=== PATIENT | male | born 1945 | race Caucasian/White ===

== ENCOUNTER 2017-07-23 13:20 | Emergency (ER) | payer MEDICARE, MEDICAID ==
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
--- NOTE | 2017-07-23 14:37 | CT ---
Head CT Technique: Multiple axial sections through the brain were obtained. Intravenous contrast was not utilized. Comparison: Prior MRI brain of 05/29/15 is available. Findings: Ventricles along the basal cisterns and sulci over convexities are mildly prominent. Diminished density is noted within the periventricular and subcortical white matter which is compatible with small vessel ischemic demyelination change. Several old lacunar infarcts are noted within the basal ganglia. No other abnormal parenchymal densities are seen. No evidence of intracranial hemorrhage. No midline shift or mass effect is appreciated. Atherosclerotic calcification is noted within the carotid siphon. Mild soft tissue swelling is seen within the frontal scalp on the left side. Visualized sinuses are clear of acute disease. No acute calvarial abnormality is seen. Impression: 1. Mild scalp soft tissue swelling. 2. Senescent change as noted above. 3. No acute intracranial abnormality is identified on noncontrast head CT exam. Diagnostic code #2
--- NOTE | 2017-07-23 14:40 | CT ---
CT cervical spine Technique: Multiple axial sections through the cervical spine were obtained. Study obtained from above C1 inferiorly to the bottom of T4. Reconstructed sagittal and coronal images were reviewed. Findings: Thoracic kyphoscoliosis is seen. Compression deformities are seen within T2, T3 and lesser T4. These compression deformities are most likely old. Vertebral bodies within the cervical spine are maintained. Moderate to severe disc space narrowing is noted at C5-6. Anterior osteophytes are noted at C5-6. Mild scattered degenerative apophyseal change is seen throughout the cervical spine. Degenerative change is noted between the dens and anterior arch of C1. No fracture is appreciated. No abnormal subluxation is seen. Moderate right-sided neural foraminal stenosis noted at C3-4. Osteopenia is seen. Impression: 1. Osteopenia. 2. Degenerative change as noted above. Kyphoscoliosis is present. 3. Nothing acute is appreciated. Diagnostic code #2
[2017-07-23] MEDS ORDERED: Lidocaine 1% 20 ML MDV INJECT ONE (15:36)
[2017-07-23] MEDS ORDERED: Lidocaine 1% 10 ML MDV ONE (15:46)
[2017-07-23 17:57] VITALS: BP 105/61
--- NOTE | 2017-07-25 09:15 | CR ---
Chest: Portable view of the chest was obtained. Comparison: No prior chest x-ray. Heart size at the upper limits of normal. Tortuous thoracic aorta is seen. Lungs are clear. Bony structure show scoliosis with the spine and osteopenia. Surgical clips are noted from prior cholecystectomy. Impression: 1. Incidental findings. Nothing acute is appreciated on portable chest x-ray. Diagnostic code #2
--- NOTE | 2017-07-25 09:15 | CR ---
Left hand: Four views of the left hand were obtained. Comparison: No previous study. Fracture is identified within the distal ulnar shaft which is mildly comminuted and mildly displaced. Degenerative change is noted off the distal navicular bone and at the CMC joint of the thumb and scattered within the DIP and PIP joints. Soft tissue swelling is noted. Bony structures are osteopenic. Impression: 1. Comminuted and mildly displaced fracture within the distal ulnar shaft. 2. Osteopenia and degenerative change. Diagnostic code #3
== END 2017-07-23 17:02 | disposition home or self-care (01) ==
LOC: JD.ED 13:20
DX: S52.602A Unspecified fracture of lower end of left ulna, initial encounter for closed fracture (principal); S61.412A Laceration without foreign body of left hand, initial encounter; S01.81XA Laceration without foreign body of other part of head, initial encounter; S60.511A Abrasion of right hand, initial encounter; E05.90 Thyrotoxicosis, unspecified without thyrotoxic crisis or storm; F32.9 Major depressive disorder, single episode, unspecified; Z88.2 Allergy status to sulfonamides; M19.90 Unspecified osteoarthritis, unspecified site; Z79.899 Other long term (current) drug therapy; V89.2XXA Person injured in unspecified motor-vehicle accident, traffic, initial encounter
CPT/HCPCS: 12004; 29125; 36415; 70450; 70450-26; 71045; 71045-26; 72125; 72125-26; 73130-26-LT; 73130-LT; 80053; 85025; 99284-25; 99285-25

== ENCOUNTER 2017-12-07 08:55 | Emergency (ER) | payer MEDICARE, MEDICAID ==
[2017-12-07 09:07] VITALS: BP 110/72
--- NOTE | 2017-12-07 09:10 | EDM.PDOC ---
ED HPI GENERAL MEDICAL PROBLEM - General Chief Complaint: Syncope Stated Complaint: [facility] Time Seen by Provider: 12/07/17 09:09 Source of Information: Reports: Patient History Limitations: Reports: No Limitations - History of Present Illness INITIAL COMMENTS - FREE TEXT/NARRATIVE: Mr. Vega apparently was found lying on the floor this morning by his primary caregiver. His caregiver checks on him every morning at 8:00. Sylvain was on the floor face first. He can answer questions but his left eye. Closed having difficulty opening it. He couldn't verbalize normally. He could not answer all questions normally. He was noted to have wet his closer lost control of his bladder. Some suggestion that the care provider identified that he had had diarrhea extensively throughout the apartment last night as well. Therefore there is an obvious change in his behavior. Sylvain has no recollection of how he ended up on the floor. He did have a bloody nose which he cleaned up. He denies any bone pain this ribs shoulders elbows or hips knees or back. He states he only hit his head. He is alert and oriented and acting normal as far as I can ascertain particularly since I have seen him before. There does have a seizure disorder but apparently no one appreciated him being post ictal although when I spoke to the caregiver it sounds like that was postictal and likely in his seizure within the hour of being found. Sylvain is mentally challenged. He also is certainly suffer from impaired short-term memory and signs and symptoms of dementia. He is not sure how he ended up on the floor. The paramedics were summoned to his home and helped him up from the floor. They did not identify any injuries either. Onset: Today Onset Date: 12/07/17 Onset Time: 07:00 Duration: Hour(s): Location: Reports: Face (Seems to have injured his nose and has some dried blood on his mid upper lip.) Quality: Reports: Ache Severity: Moderate Improves with: Reports: None Worsens with: Reports: None Context: Reports: Other (Unsure how he got down to the floor. Suspect trip and fall. Blood pressure is on the low side at 72. He may have expressed a syncopal episode. He states he has not yet had any breakfast. He is not known to be diabetic.). Denies: Activity, Exercise, Lifting, Sick Contact, Trauma Associated Symptoms: Reports: Headaches. Denies: No Other Symptoms, Confusion, Chest Pain, Cough, cough w sputum, Diaphoresis, Fever/Chills, Loss of Appetite, Malaise, Nausea/Vomiting, Rash, Seizure (He states he had a headache but it's better now), Shortness of Breath, Syncope, Weakness Treatments SCRIPT WORKER: Reports: Other (see below) (None.) - Related Data Allergies Allergy/AdvReac Type Severity Reaction Status Date / Time Sulfa (Sulfonamide Allergy Hives Verified 12/07/17 09:01 Antibiotics) Home Meds: Home Meds Donepezil HCl [Aricept] 10 mg PO BEDTIME 10/10/15 [History] Loratadine [Claritin] 10 mg PO DAILY 10/10/15 [History] Non-Formulary Medication [NF Drug] 2 mg BID 10/10/15 [History] Tamsulosin HCl [Flomax] 0.4 mg PO DAILY 10/10/15 [History] Triamcinolone Acetonide [Nasacort AQ [place]] 2 spr MAITE DAILY 10/10/15 [History] Vitamin E Mixed [Vitamin E] 400 unit PO DAILY 10/10/15 [History] carBAMazepine [Carbamazepine ER] 400 mg PO BID 10/13/15 [History] Docusate Sodium [Colace] 100 mg PO BID PRN #60 cap 10/22/15 [Rx] Sucralfate [Carafate] 1 gm PO QIDACANDBED #120 cup 10/22/15 [Rx] Ascorbic Acid/Ascorbate Sodium [Vitamin C 500 mg Wafer] 500 mg PO BID 12/07/17 [ History] Ferrous Sulfate 325 mg PO BIDMEALS 12/07/17 [History] Potassium Chloride 20 meq PO DAILY 12/07/17 [History] Sertraline [Zoloft] 50 mg PO DAILY 12/07/17 [History] carBAMazepine [TEGretol ER] 200 mg PO DAILY #30 tab.er 12/07/17 [Rx] traZODone HCl [Trazodone HCl] 75 mg PO QPM 12/07/17 [History] Past Medical History Cardiovascular History: Reports: Hypertension Respiratory History: Reports: Other (See Below) Other Respiratory History: URI Gastrointestinal History: Reports: Other (See Below) Other Gastrointestinal History: ULCERS Genitourinary History: Reports: BPH, Pyelonephritis, Other (See Below) Other Genitourinary History: kidney stones Musculoskeletal History: Reports: Back Pain, Chronic, Osteoarthritis, Other ( See Below) Other Musculoskeletal History: scoliosis Psychiatric History: Reports: Depression, Learning Disability, Other (See Below) Other Psychiatric History: psychotic disorder Endocrine/Metabolic History: Reports: Hyperthyroidism - Infectious Disease History Infectious Disease History: Reports: Chicken Pox - Past Surgical History Musculoskeletal Surgical History: Reports: Hip Replacement Social & Family History - Family History Family Medical History: Noncontributory - Caffeine Use Caffeine Use: Reports: Tea - Living Situation & Occupation Living situation: Reports: Single Occupation: Disabled ED ROS GENERAL - Review of Systems Review Of Systems: See Below Constitutional: Reports: Malaise, Weakness, Fatigue, Other. Denies: Fever, Chills, Weight Loss HEENT: Reports: Other (Carlson of had a bloody nose.). Denies: Glasses (He states he's hungry at this time.), Hearing Loss, Nosebleed, Sinus Problem, Throat Pain, Throat Swelling Respiratory: Reports: No Symptoms Cardiovascular: Reports: No Symptoms Endocrine: Reports: No Symptoms GI/Abdominal: Reports: Diarrhea : Reports: Other (Identified to lost control of his bladder when found on the floor suggesting seizure occurrence.) Musculoskeletal: Reports: No Symptoms Skin: Reports: No Symptoms Neurological: Reports: Headache, Seizure. Denies: Numbness, Paresthesia, Pre- Existing Deficit (Strongly suspect seizure occurrence this morning.), Syncope ( Mild headache but he states it's getting better), Tingling, Tremors, Trouble Speaking, Difficulty Walking, Weakness Psychiatric: Reports: Confusion (Intermittent problems with confusion with impaired short-term memory. Development) Hematologic/Lymphatic: Reports: No Symptoms ( sinus symptoms of dementia) Immunologic: Reports: No Symptoms - Physical Exam Exam: See Below Exam Limited By: No Limitations General Appearance: Alert, WD/WN, No Apparent Distress, Other (To me he appeared to be his normal self.) Eye Exam: Bilateral Eye: Normal Inspection, PERRL Ears: Normal TMs Nose: Other (He has had some bleeding from his left naris. There is dried blood on his upper lip.) Throat/Mouth: Normal Inspection, Normal Oropharynx. No: Normal Teeth Head Exam: Atraumatic, Normocephalic, Other (No overt signs of head trauma with no palpable scalp hematomas or lacerations or contusions.) Neck: Limited Range of Motion, Other (He has limited range of motion normally. But he had full) Respiratory/Chest: No Respiratory Distress ( painless range of motion in the ED. ), Decreased Breath Sounds. No: Respiratory Distress, Rales, Rhonchi ( Decreased breath sounds to both posterior lung cortes appreciated on exam.), Wheezing Cardiovascular: Normal Peripheral Pulses, Regular Rate, Rhythm, No Edema, No Gallop, No Murmur GI/Abdominal: Normal Bowel Sounds, Soft, Non-Tender, No Organomegaly Neuro Exam (Abbreviated): Alert, Oriented, CN II-XII Intact, Normal Cognition, No Motor/Sensory Deficits. No: Normal Gait (Done.) DTR: 0: Achilles (R), Achilles (L), 1+: Bicep (R), Bicep (L), Patella (R), Patella (L) Back Exam: Decreased Range of Motion, Other (Has severe kyphosis of his thoracic spine.). No: Full Range of Motion, CVA Tenderness (L), CVA Tenderness (R) Extremities: Normal Inspection, Normal Range of Motion, Non-Tender, No Pedal Edema Psychiatric: Normal Affect, Normal Mood Skin Exam: Warm, Dry, Intact, Normal Color, No Rash Course - Vital Signs Last Recorded V/S: Last Vital Signs Temp 36.8 C 12/07/17 09:01 Pulse 93 12/07/17 09:01 Resp 13 12/07/17 09:01 BP 110/72 12/07/17 09:01 Pulse Ox 13 L 12/07/17 09:01 - Orders/Labs/Meds Orders: Active Orders 24 hr Category Date Time Status CARBAMAZEPINE,TEGRETOL [CHEM] Stat Lab 12/07/17 10:15 Ordered LACTIC ACID [CHEM] Stat Lab 12/07/17 09:33 Received PRO B-TYPE NATRIUR PEPT,BNPPRO [CHEM] Stat Lab 12/07/17 09:05 Received TSH [CHEM] Stat Lab 12/07/17 09:05 Received Dextrose 5%-0.9% NaCl [Dextrose 5%-Normal Saline] 1,000 Med 12/07/17 09:15 Active ml IV ASDIRECTED Medication Orders Dextrose/Sodium Chloride (Dextrose 5%-Normal Saline) 1,000 mls @ 500 mls/hr IV ASDIRECTED GEE Last Admin: 12/07/17 09:40 Dose: 500 mls/hr Labs: Laboratory Tests 12/07/17 12/07/17 Range/Units 09:05 09:05 WBC 20.90 H (4.23-9.07) K/mm3 RBC 4.50 L (4.63-6.08) M/mm3 Hgb 13.5 L (13.7-17.5) gm/L Hct 40.8 (40.1-51.0) % MCV 90.7 (79.0-92.2) fl MCH 30.0 (25.7-32.2) pg MCHC 33.1 (32.2-35.5) g/dl RDW Std Deviation 48.1 H (35.1-43.9) fL Plt Count 325 (163-337) K/mm3 MPV 9.4 (9.4-12.3) fl Neutrophils % (Manual) 69 H (40-60) % Band Neutrophils % 2 (0-10) % Lymphocytes % (Manual) 21 (20-40) % Atypical Lymphs % 0 % Monocytes % (Manual) 8 (2-10) % Eosinophils % (Manual) 0 L (0.8-7.0) % Basophils % (Manual) 0 L (0.2-1.2) Differential Comment See note Toxic Granulation 1+ slight Platelet Estimate Adequate RBC Morph Comment Normal Sodium 143 (136-145) mEq/L Potassium 3.2 L (3.5-5.1) mEq/L Chloride 107 (98-107) mEq/L Carbon Dioxide 24 (21-32) mEq/L Anion Gap 15.2 H (5-15) BUN 20 H (7-18) mg/dL Creatinine 1.5 H (0.7-1.3) mg/dL Est Cr Clr Drug Dosing 36.73 mL/min Estimated GFR (MDRD) 46 (>60) mL/min BUN/Creatinine Ratio 13.3 L (14-18) Glucose 122 H (83-115) mg/dL Calcium 8.8 (8.5-10.1) mg/dL Magnesium 2.0 (1.8-2.4) mg/dl Total Bilirubin 0.4 (0.2-1.0) mg/dL AST 113 H (15-37) U/L ALT 30 (16-63) U/L Alkaline Phosphatase 108 (46-116) U/L Creatine Kinase 4564 H (39-308) U/L Troponin I < 0.017 (0.00-0.056) ng/mL Total Protein 7.3 (6.4-8.2) g/dl Albumin 3.1 L (3.4-5.0) g/dl Globulin 4.2 gm/dL Albumin/Globulin Ratio 0.7 L (1-2) Meds: Medications Generic Name Dose Route Start Last Admin Trade Name Freq PRN Reason Stop Dose Admin Dextrose/Sodium Chloride 1,000 mls @ 500 mls/hr 12/07/17 09:15 12/07/17 09:40 Dextrose 5%-Normal Saline IV 500 mls/hr ASDIRECTED GEE Administration Discontinued Medications Generic Name Dose Route Start Last Admin Trade Name Freq PRN Reason Stop Dose Admin Carbamazepine 400 mg 12/07/17 09:42 12/07/17 09:57 Tegretol Tab PO 12/07/17 09:43 400 mg ONETIME ONE Administration - Radiology Interpretation Free Text/Narrative:: 72-year-old male with a known seizure disorder presents to the ED after being found lying on the floor of his apartment this morning by his primary caregiver. Caregiver checks on him about 8:00 every morning. That was found lying on the floor not able to verbalize normally. Care worker identify that his left eye seemed to be close that he couldn't open it all the way. His speech was off and he had some difficulty obeying commands which is abnormal for him. Dog as a mental illness. He is usually on Stelazine 1 mg in the morning 2 mg at bedtime. He also has a seizure disorder and takes Tegretol 400 mg extended release twice daily. Sutures suggest that he probably had had a seizure this morning since he lost control of his bowel and bladder. He also has some dried blood on his face I believe from the left side of his nose. Plan CT scan of the brain to be done. Routine lab work on 1 view chest x-ray to be done. - Re-Assessments/Exams Free Text/Narrative Re-Assessment/Exam: 12/07/17 9:27 CT of the brain reveals moderate to severe atrophy. He has encephalomalacia the anterior and posterior horns of the lateral ventricles. He has diffuse small vessel ischemic changes in both basal ganglia. Prominent sulci due to brain shrinkage. There is no intracranial bleeding and there is no evidence of extracranial swelling or hematoma formation and no skull fracture. 12/07/17 10:18 labs are back. Labs reveal an elevated white count at 20.90. There is a slight left shift with 69% neutrophils and 2% bands. Hemoglobin is 13.5 with hematocrit of 40.8. Platelet count is 325,000. Sodium is 143 with slightly low serum potassium at 3.2. Blood as well as 7 with a bicarbonate 24. And a gap is minimally elevated at 15.2. -20 with a creatinine of 1.5. Glucose is 122. Calcium is 8.8. Magnesium normal at 2.0. AST is 113 with an ALT of 30. Phosphatase is 108. Creatine kinase is 4564. Troponin I is less than 0.017. Albumin fraction slightly low at 3.1. 12/07/17 11:15 the above labs stiffly support a seizure occurrence this morning. For sure I am not able to get lactic acid back and not able to get a Tegretol level back either. I spoke with -his normal care provider in the last admitted Tegretol level in the clinic was in April at which time was 6.9 which was midtherapeutic. 4 I believe this probably room to increase his Tegretol by 200 mg at bedtime. I will do this at this time and he can follow -up in the clinic with Dr. Duffy in a week's time to check his levels again and compare the ones that eventually will get done to our hospital. Departure - Departure Time of Disposition: 11:17 Disposition: Home, Self-Care 01 Condition: Fair Clinical Impression: Breakthrough seizure - Discharge Information *PRESCRIPTION DRUG MONITORING PROGRAM REVIEWED*: Not Applicable *COPY OF PRESCRIPTION DRUG MONITORING REPORT IN PATIENT FLAVIA: Not Applicable Prescriptions: carBAMazepine [TEGretol ER] 200 mg PO DAILY #30 tab.er Instructions: Seizure, Adult, [id number] Referrals: Dawson Duffy MD [Primary Care Provider] - Forms: ED Department Discharge Additional Instructions: Evaluation the emergency room today after being found on the floor of your home relatively unresponsive this morning. You're left eye did not open appropriately you had trouble conversing with your care provider and no clue as to what happened to make you fall to the floor. Injuries appear to be minor clear nose with some blood loss that has stopped. CT scan of the brain reveals no intracranial bleeding or abnormalities in the skull to suggest fracture etc. No other signs of trauma were identified on your body. Lab work definitely identifies that you have suffered a seizure. A breakthrough seizure. Decision made after speaking with Dr. Duffy to increase her Tegretol dosage with the addition of 200 mg extended release tablet at bedtime as well as her current 400 mg extended release tablets twice daily. You're to make an appointment to see him in about 7-10 days time for review and repeat or check on your Tegretol levels in your blood. - My Orders Last 24 Hours: My Active Orders 12/07/17 09:05 PRO B-TYPE NATRIUR PEPT,BNPPRO [CHEM] Stat TSH [CHEM] Stat 12/07/17 09:15 Dextrose 5%-0.9% NaCl [Dextrose 5%-Normal Saline] 1,000 ml IV ASDIRECTED 12/07/17 09:33 LACTIC ACID [CHEM] Stat 12/07/17 10:15 CARBAMAZEPINE,TEGRETOL [CHEM] Stat - Assessment/Plan Last 24 Hours: My Active Orders 12/07/17 09:05 PRO B-TYPE NATRIUR PEPT,BNPPRO [CHEM] Stat TSH [CHEM] Stat 12/07/17 09:15 Dextrose 5%-0.9% NaCl [Dextrose 5%-Normal Saline] 1,000 ml IV ASDIRECTED 12/07/17 09:33 LACTIC ACID [CHEM] Stat 12/07/17 10:15 CARBAMAZEPINE,TEGRETOL [CHEM] Stat
[2017-12-07] MEDS ORDERED: Dextrose 5%-0.9% NaCl 1,000 ML IV SCH (09:15)
--- NOTE | 2017-12-07 09:41 | CT ---
Head CT Technique: Multiple axial sections through the brain were obtained. Intravenous contrast was not utilized. Comparison: Prior head CT exam of 07/23/17. Findings: Ventricles along with basal cisterns and sulci over the convexities are mildly prominent. Diminished density is noted within the periventricular and subcortical white matter compatible with small vessel ischemic demyelination change. 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 No other abnormal parenchymal density is seen. No evidence of intracranial hemorrhage. No midline shift or mass effect is seen. Bone window settings were reviewed which shows no acute calvarial abnormality. Minimal mucosal thickening is seen within the left maxillary sinus which is felt to be incidental. Mild mucosal thickening is seen within the frontal and ethmoid sinuses also felt to be incidental. Mild atherosclerotic calcification is seen within the carotid siphon. Impression: 1. Senescent change as noted above. 2. Minimal sinus findings which are felt to be incidental. 2. No acute intracranial abnormality is seen. No skull fracture is seen. Diagnostic code #2
[2017-12-07] MEDS ORDERED: carBAMazepine 200 MG Tab PO ONE (09:42)
--- NOTE | 2017-12-07 10:14 | CR ---
Chest: Portable view of the chest was obtained. Comparison: Prior chest x-ray of 07/23/17. Heart size is normal. Tortuous thoracic aorta is seen. No acute parenchymal densities are seen. Scoliosis is noted within the spine. Surgical clips are seen within the upper right abdomen. Impression: 1. Incidental findings. Nothing acute is seen on portable chest x-ray. Diagnostic code #2
== END 2017-12-07 11:40 | disposition home or self-care (01) ==
LOC: JD.ED 08:55 → SUPCPDRO 08:55 → JD.ED 11:40
DX: G40.89 Other seizures (principal); I10 Essential (primary) hypertension; Z88.2 Allergy status to sulfonamides; Z79.899 Other long term (current) drug therapy
CPT/HCPCS: 36415; 70450; 71045; 80053; 80156; 82550; 83605; 83735; 84443; 84484; 85007; 85027; 96360; 96361; 99285; A9270; J7042; 99284

== ENCOUNTER 2021-01-05 07:56 | Day surgery (SDC) | payer MEDICARE, MEDICAID ==
[~2021-01-05 07:56] MED LIST: Lidocaine 1% 4 ML ONE; Propofol 200 MG/20 ML SDV ONE
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
[2021-01-05] MEDS ORDERED: Lidocaine 1%/Sod Bicarbonate in NS 8.4% 1 ML Syringe IDERM PRN (08:34)
[2021-01-05] MEDS ORDERED: Sodium Chloride 0.9% 10 ML Syringe FLUSH PRN (08:34)
[2021-01-05] MEDS ORDERED: Lactated Ringers 1,000 ML IV SCH (08:45)
[2021-01-05] MEDS ORDERED: ePHEDrine 50 MG/ML SDV ONE (09:38)
[2021-01-05] MEDS ORDERED: Propofol 200 MG/20 ML SDV ONE (09:46)
--- NOTE | 2021-01-05 10:38 | PCM48HPAN ---
Post Anesthesia Note - EVALUATION WITHIN 48HRS OF ANESTHETIC Vital Signs in Normal Range: Yes Patient Participated in Evaluation: Yes Respiratory Function Stable: Yes Airway Patent: Yes Cardiovascular Function Stable: Yes Hydration Status Stable: Yes Pain Control Satisfactory: Yes Nausea and Vomiting Control Satisfactory: Yes Mental Status Recovered: Yes Vital Signs: Last Vital Signs Temp 36.8 C 01/05/21 07:45 Pulse 83 01/05/21 07:45 Resp 20 01/05/21 07:45 BP 125/66 01/05/21 07:45 Pulse Ox 93 L 01/05/21 07:45
--- NOTE | 2021-01-05 11:49 | PROC ---
DATE OF OPERATION: 01/05/2021 SURGEON: Kaylene Gonzalez MD PREOPERATIVE DIAGNOSES: 1. History of colon polyps. 2. History of peptic ulcer disease. POST OPERATIVE DIAGNOSES: 1. Mild gastritis. 2. 2 cm Hiatus hernia. 3. LA grade A esophagitis. 4. Colon Polyps. 5. Grade II internal hemorrhoid - one column. OPERATION PERFORMED: 1. Esophagogastroduodenoscopy with biopsies. 2. Colonoscopy with polypectomies. ANESTHESIA: Monitored anesthesia care. COMPLICATIONS: None. ESTIMATED BLOOD LOSS: Minimal. FINDINGS: Z-line at 38cm, LA grade A esophagitis - biopsied, mild localized gastritis - biopsies taken, also random biopsies taken from stomach body, 12 small to medium sized polyps found and removed from the colon, grade II non-bleeding internal hemorrhoid. INDICATIONS AND CONSENT: Mr. Vega is a 75-year-old male who lives at a nursing facility due to history of intellectual disability. The patient presented to the clinic with a caregiver for EGD and colonoscopy due to prior history of PUD and colon polyps. The patient has been on PPIs long-term, but in the recent days, he has been having more reflux symptoms. Therefore, we discussed with the patient and patient's caregiver about colonoscopy and EGD. Risks, benefits, and alternatives were discussed with patient. LAQUITA Funes was called and again risks, benefits, and alternatives were discussed with her and informed consent was obtained. DETAILS OF PROCEDURE: The patient was taken to the procedure room, placed in left lateral decubitus position. Monitored anesthesia care was induced and time-out was performed. A bite block was placed into the mouth and we began the procedure with an EGD. Olympus scope was placed into the mouth and taken all the way down to the second portion of duodenum. Second portion and first portion duodenum were normal. Antrum and body of the stomach appeared to be slightly inflamed with some mild localized gastritis. Antrum random biopsies were taken from the body of the stomach as well. Of note, the patient also has a history of gastric intestinal metaplasia. Therefore, random biopsies were also indicated for this reason. At least four biopsies taken of the antrum and at least four biopsies were taken in the stomach body. On retroflexion, the patient has a small, about 2 cm hiatal hernia. Cardia and fundus appeared normal. We went back to the GE junction which was at 38 cm from incisors. There was LA grade A esophagitis at this site. Biopsies were taken at the GE junction. Once this was done, air was suctioned out from the stomach. The entire esophagus was examined, appeared to be normal. This part of the procedure was concluded. Then, we paid attention to the colonoscopy. Perianal exam revealed one grade 2 internal hemorrhoid that was nonbleeding. Digital rectal exam was normal. We placed the scope and took it all the way to the cecum. The cecum appeared normal. Ascending colon was normal. Transverse colon, there were two 4 mm to 7 mm pedunculated polyps. These were removed with hot snare. In the descending colon, there were two additional polyps. These were 4 mm and 8 mm polyps. These were also removed with hot snare. Removal was complete and retrieval was complete for both of these. In the sigmoid colon, there were four polyps ranging from 3 mm to 8 mm. Three of these were pedunculated, one was semi-sessile. Three of them were removed with hot snare and one was removed with cold forceps and retrieved. In the rectum, there were four polyps ranging from 4 mm to 8 mm. Three of these were pedunculated and one was semi-sessile. Three were removed with cold snare, one was removed with cold forceps. EBL was minimal. Two of these were able to be retrieved, but the other two were not able to be retrieved. At this point, retroflexion was performed and there was again visualized grade II internal hemorrhoid that was nonbleeding. Air was suctioned out from the rectum and colonoscopy was concluded. Therefore, in total, the patient has twelve small but mostly medium-sized polyps that were removed and the patient will be allowed to return to his facility. RECOMMENDATIONS: Repeat colonoscopy in 3 years. The patient to follow up in 2 weeks for pathology discussion. MMODAL /[id number] RICK
[2021-01-05 13:10] VITALS: BP 122/71; PULSE 55
== END 2021-01-05 11:30 | disposition home or self-care (01) ==
LOC: JD.SDS 07:56
PROVIDERS: ATTEND Surgery
DX: Z12.11 Encounter for screening for malignant neoplasm of colon (principal); D12.3 Benign neoplasm of transverse colon; D12.4 Benign neoplasm of descending colon; D12.5 Benign neoplasm of sigmoid colon; K62.1 Rectal polyp; K29.50 Unspecified chronic gastritis without bleeding; K44.9 Diaphragmatic hernia without obstruction or gangrene; K31.89 Other diseases of stomach and duodenum; K20.90 Esophagitis, unspecified without bleeding; K64.1 Second degree hemorrhoids; K31.7 Polyp of stomach and duodenum; E03.9 Hypothyroidism, unspecified; N40.0 Benign prostatic hyperplasia without lower urinary tract symptoms; Z79.899 Other long term (current) drug therapy; Z88.2 Allergy status to sulfonamides; Z87.891 Personal history of nicotine dependence
CPT/HCPCS: 43239; 45380; 45385; J2704; J7120; 00813; 88305; 88342; 99100

== ENCOUNTER 2022-05-20 18:47 | Emergency (ER) | payer MEDICARE, MEDICAID ==
[2022-05-20 18:59] VITALS: BP 119/65; PULSE 80
[2022-05-20 20:46] LABS: CORONAVIRUS COVID-19 NAA NEGATIVE (NEGATIVE)
[2022-05-20] MEDS ORDERED: Nitrofurantoin Monohydrate/Macrocrystalline 100 MG Cap PO STA (20:52)
[2022-05-20] MEDS ORDERED: Sodium Chloride 0.9% 1,000 ML IV ONE (21:21)
[2022-05-20] MEDS ORDERED: Iopamidol 755 Mg/ML 100 ML Bottle IVPUSH ONE (21:24)
[2022-05-20] MEDS ORDERED: Sodium Chloride 0.9% 10 ML Syringe FLUSH ONE (21:24)
[2022-05-20] MEDS ORDERED: Sodium Chloride 0.9% 100 ML IV SCH (21:30)
== END 2022-05-21 | disposition home or self-care (01) ==
LOC: JD.ED 18:47
DX: N39.0 Urinary tract infection, site not specified (principal); B97.4 Respiratory syncytial virus as the cause of diseases classified elsewhere; I12.9 Hypertensive chronic kidney disease with stage 1 through stage 4 chronic kidney disease, or unspecified chronic kidney disease; N18.9 Chronic kidney disease, unspecified; E87.20 Acidosis, unspecified; K21.9 Gastro-esophageal reflux disease without esophagitis; Z88.2 Allergy status to sulfonamides; Z79.899 Other long term (current) drug therapy; Z20.822 Contact with and (suspected) exposure to COVID-19
CPT/HCPCS: 0241U; 36415; 71045; 71275; 80053; 81001; 83605; 83735; 84484; 85007; 85027; 85379; 86140; 87040; 87077; 87086; 87154; 87186; 93005; 96360; 99285; A9270; J3490; J7030; Q9967